=== PATIENT | female | born 1970 | race Caucasian/White ===

== ENCOUNTER 2016-02-29 10:11 | Emergency (ER) | payer OTHER ==
[~2016-02-29] VITALS: Ht 160 cm; Wt 64.9 kg
[2016-02-29 10:31] VITALS: BP 133/63
--- NOTE | 2016-02-29 10:41 | RAD ---
Chest, 2 views, 02/29/2016: History: Cough, dyspnea, pain The heart size and pulmonary vascularity are normal. No pulmonary infiltrates are seen. There is no evidence of pleural fluid. IMPRESSION: No acute cardiopulmonary abnormality is detected.
[2016-02-29] MEDS ORDERED: PREDNISONE 20 MG TABLET PO ONE (11:30)
[2016-02-29] MEDS ORDERED: IPRATRPIUM/ALBUTEROL 0.5/2.5MG 3 ML NEBU. NEB ONE (11:30)
[2016-02-29] MEDS ORDERED: MORPHINE SULFATE 10 MG/ML VIAL. IM ONE (11:30)
[2016-02-29] MEDS ORDERED: ONDANSETRON ODT 4 MG TAB.RAPDIS PO ONE (11:30)
[2016-02-29] MEDS ORDERED: BENZ100C PO (12:45)
[2016-02-29] MEDS ORDERED: PROAIR RESPICL90 MCG IH (12:45)
[2016-02-29] MEDS ORDERED: ONDA4TAB10 SL (12:45)
[2016-02-29] MEDS ORDERED: PRED50TA PO (12:45)
--- NOTE | 2016-02-29 12:45 | PHYS DOC ---
Past Medical History Past Medical History: Bipolar, Migraines Additional Past Medical Histor: TREMORS, PTSD, Past Surgical History: Hysterectomy, Knee Replacement Additional Past Surgical Histo: Lumps removed from L breast, ENDOMETRIOSIS SURGERY Alcohol Use: None Drug Use: None Adult General Chief Complaint Chief Complaint: FLU SYMPTOM HPI HPI Patient is a 46 year old female with history of bipolar and migraine headaches who presents today with multiple complaints. Patient states she believes she has bronchitis, she states she's been having a productive cough since yesterday. Patient denies any fever. She states she is congested nasally. Patient's also complaining of vomiting and nausea since yesterday. She states she works at [employer] in they have approximately 17 resident's with similar symptoms. Patient's also complaining of exacerbation of her migraine headache due to the congestion. She initially requested Dilaudid for a migraine headache which I informed patient is not appropriate. I offered her morphine. Patient denies this being the worst headache in her life. Review of Systems Review of Systems Constitutional: Denies fever or chills [] Eyes: Denies change in visual acuity, redness, or eye pain [] HENT: nasal congestion Respiratory: cough Cardiovascular: No additional information not addressed in HPI [] GI: Denies abdominal pain, nausea, vomiting, bloody stools or diarrhea [] : Denies dysuria or hematuria [] Musculoskeletal: Denies back pain or joint pain [] Integument: Denies rash or skin lesions [] Neurologic: headache, Endocrine: Denies polyuria or polydipsia [] Current Medications Current Medications Current Medications Medications (Trade) Dose Ordered Sig/[facility] Start Time Stop Time Status Last Admin Dose Admin Albuterol/ Ipratropium (Duoneb) 3 ml 1X ONCE 02/29/16 11:30 02/29/16 11:31 DC Morphine Sulfate 5 mg 1X ONCE 02/29/16 11:30 02/29/16 11:31 DC 02/29/16 12:13 5 MG Ondansetron HCl (Zofran Odt) 4 mg 1X ONCE 02/29/16 11:30 02/29/16 11:31 DC 02/29/16 12:12 4 MG Prednisone (Prednisone) 60 mg 1X ONCE 02/29/16 11:30 02/29/16 11:31 DC 02/29/16 12:13 60 MG Allergies Allergies Allergies Coded Allergies Type Severity Reaction Last Updated Verified Penicillins Allergy Severe Anaphylaxis 02/02/15 Yes diphenhydramine Allergy Intermediate Nausea and Vomiting, GI Bleeding 02/29/16 Yes ketorolac Allergy Intermediate Nausea and Vomiting 02/29/16 Yes prochlorperazine Allergy Intermediate Nausea and Vomiting 02/29/16 Yes NSAIDS (Non-Steroidal Anti-Inflamma Adverse Reaction Intermediate Nausea and Vomiting, GI Bleeding 02/29/16 Yes Physical Exam Physical Exam Constitutional: Well developed, well nourished, no acute distress, non-toxic appearance. [] HENT: Normocephalic, atraumatic, bilateral external ears normal, oropharynx moist, no oral exudates, nose normal. [] Eyes: PERRLA, EOMI, conjunctiva normal, no discharge. [] Neck: Normal range of motion, no tenderness, supple, no stridor. [] Cardiovascular:Heart rate regular rhythm, no murmur [] Lungs & Thorax: Bilateral breath sounds clear to auscultation [] Abdomen: Bowel sounds normal, soft, no tenderness, no masses, no pulsatile masses. [] Skin: Warm, dry, no erythema, no rash. [] Back: No tenderness, no CVA tenderness. [] Extremities: No tenderness, no cyanosis, no clubbing, ROM intact, no edema. [] Neurologic: Alert and oriented X 3, normal motor function, normal sensory function, no focal deficits noted. Cranial nerves II through XII intact Psychologic: Affect normal, judgement normal, mood normal. [] Current Patient Data Vital Signs Vital Signs Date Time Temp Pulse Resp B/P Pulse Ox O2 Delivery O2 Flow Rate FiO2 02/29/16 12:13 16 96 Room Air 02/29/16 10:31 98.2 70 133/63 98.2 EKG EKG [] Radiology/Procedures Radiology/Procedures []PROCEDURE: CHEST PA & LATERAL Chest, 2 views, 02/29/2016: History: Cough, dyspnea, pain The heart size and pulmonary vascularity are normal. No pulmonary infiltrates are seen. There is no evidence of pleural fluid. IMPRESSION: No acute cardiopulmonary abnormality is detected. DICTATED and SIGNED BY: JEFFERSON ADDISON MD DATE: 02/29/16 1038 CC: DONIS BARBER APRN; NON,STAFF ~ Course & Med Decision Making Course & Med Decision Making Pertinent Labs and Imaging studies reviewed. (See chart for details) Patient is in the ED with multiple complaints including concern for bronchitis, she is a nonsmoker, she is also complaining of nasal congestion. She is also complaining of vomiting and nausea. 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 She is requesting something for her chronic migraine headaches. Her medicine of choice was Dilaudid, informed patient this is not appropriate. Offered her morphine 5 mg IM for her migraine. She is allergic to NSAIDs. Chest x-ray interpreted by radiologist as negative for any acute findings. Informed patient her bronchitis is probably viral. Offered her prednisone and a DuoNeb treatment in the ED. Her lungs were clear. She was discharged with prednisone for 4 more days, albuterol treatments, I offered her decongestants, patient states she cannot take them because they make her have tremors. Recommended saline rinses. Discharge her with Tessalon Perles. Discharge her with Imitrex for her headache. Discharge her with Zofran for nausea vomiting which could be viral. Recommended she pushes fluids and maintain good hand hygiene at home. Dragon Disclaimer Dragon Disclaimer This electronic medical record was generated, in whole or in part, using a voice recognition dictation system. Departure Departure Impression: Primary Impression: Migraine Additional Impressions: Acute bronchitis Upper respiratory infection Nausea and vomiting Disposition: 01 HOME, SELF-CARE Condition: STABLE Referrals: NO PCP (PCP) Please follow-up with your own doctor in the next 7 days Patient Instructions: Acute Bronchitis Additional Instructions: You were seen for acute bronchitis, upper respiratory infection, nausea and vomiting. All these symptoms are probably viral. Push fluids. Maintain good hand hygiene. Use the prescribed medicines as ordered. Come back to the emergency room if symptoms worsen. Scripts Prednisone 50 Mg Tablet1 Tab PO DAILY #4 TAB Prov:MUTUNGA,DONIS KNOT PICKER CLOTH 02/29/16 Ondansetron (Zofran Odt)4 Mg Tab.rapdis1 Tab SL Q8HRS #15 TAB Prov:MUTUNGA,DONIS KNOT PICKER CLOTH 02/29/16 Benzonatate (Tessalon Perle)100 Mg Capsule1 Cap PO TID #30 CAP Prov:MUTUNGA,DONIS KNOT PICKER CLOTH 02/29/16 Albuterol Sulfate (Proair Respiclick)90 Mcg Aer.pow.ba1 Puff IH PRN Q6HRS PRN SHORTNESS OF BREATH #1 INHALER Prov:DONIS BARBER KNOT PICKER CLOTH 02/29/16 Problem Qualifiers Primary Impression: Migraine Migraine type: without aura Status migrainosus presence: without status migrainosus Intractability: not intractable Qualified Code: G43.009 - Migraine without aura, not intractable, without status migrainosus Additional Impressions: Acute bronchitis Bronchitis organism: unspecified organism Qualified Code: J20.9 - Acute bronchitis, unspecified Upper respiratory infection URI type: unspecified URI Qualified Code: J06.9 - Acute upper respiratory infection, unspecified Nausea and vomiting Vomiting type: unspecified Vomiting Intractability: non-intractable Qualified Code: R11.2 - Nausea with vomiting, unspecified ELISABETHDONIS KNOT PICKER CLOTH Feb 29, 2016 12:45
== END 2016-02-29 13:07 | disposition home or self-care (01) ==
LOC: ER 10:11
DX: G43.909 Migraine, unspecified, not intractable, without status migrainosus (principal); J20.9 Acute bronchitis, unspecified; J06.9 Acute upper respiratory infection, unspecified; F31.9 Bipolar disorder, unspecified; F43.10 Post-traumatic stress disorder, unspecified; Z88.8 Allergy status to other drugs, medicaments and biological substances; Z88.0 Allergy status to penicillin
CPT/HCPCS: 71020; 94250; 94640; 94760; 96372; 99284; J2270; J7512; J7620; Q0162

== ENCOUNTER 2016-05-04 12:28 | Emergency (ER) | payer OTHER ==
[~2016-05-04] VITALS: Ht 160 cm; Wt 59.9 kg
[~2016-05-04 12:28] MED LIST: BENZ100C PO; ONDA4TAB10 SL; PRED50TA PO; PROAIR RESPICL90 MCG IH
[2016-05-04 12:41] VITALS: BP 138/89
[2016-05-04] MEDS ORDERED: LORA-434 PO (13:12)
--- NOTE | 2016-05-04 13:12 | PHYS DOC ---
Past Medical History Past Medical History: Bipolar, Migraines Additional Past Medical Histor: TREMORS, PTSD, Past Surgical History: Hysterectomy, Knee Replacement Additional Past Surgical Histo: Lumps removed from L breast, ENDOMETRIOSIS SURGERY Alcohol Use: Occasionally Drug Use: None Adult General Chief Complaint Chief Complaint: ANXIETY/PANIC ATTACK [facility] HPI Patient is a 46 year old female who presents with severe anxiety causing headache and chest pain that is exactly like prior severe anxiety attacks. States she ended a 9-year relationship last night and this has caused severe stress. She is taking valium TID chronically for anxiety, but this is not helping her current feelings. She drove herself here. She notes a local support system of her children and her parents. She has a safe place to go. She discussed her feelings with her PCP and psychotherapist over the phone and was directed to the ED for help. She denies cough, dyspnea, leg pain or swelling, hemoptysis, n/v, f/c, abdominal pain, vision changes, numbness, tingling, weakness, dizziness, suicidal or homicidal ideations, or hallucinations. Review of Systems Review of Systems Constitutional: Denies fever or chills [] Eyes: Denies change in visual acuity, redness, or eye pain [] HENT: Denies nasal congestion or sore throat [] Respiratory: Denies cough or shortness of breath [] Cardiovascular: No additional information not addressed in HPI [] GI: Denies abdominal pain, nausea, vomiting, bloody stools or diarrhea [] : Denies dysuria or hematuria [] Musculoskeletal: Denies back pain or joint pain [] Integument: Denies rash or skin lesions [] Neurologic: Denies focal weakness or sensory changes [] Endocrine: Denies polyuria or polydipsia [] Allergies Allergies Allergies Coded Allergies Type Severity Reaction Last Updated Verified Penicillins Allergy Severe Anaphylaxis 02/02/15 Yes diphenhydramine Allergy Intermediate Nausea and Vomiting, GI Bleeding 02/29/16 Yes ketorolac Allergy Intermediate Nausea and Vomiting 02/29/16 Yes prochlorperazine Allergy Intermediate Nausea and Vomiting 02/29/16 Yes NSAIDS (Non-Steroidal Anti-Inflamma Adverse Reaction Intermediate Nausea and Vomiting, GI Bleeding 02/29/16 Yes Physical Exam Physical Exam Constitutional: Well developed, well nourished, non-toxic appearance. Anxious and tearful [] HENT: Normocephalic, atraumatic, bilateral external ears normal, oropharynx moist, no oral exudates, nose normal. [] Eyes: PERRLA, EOMI. [] Neck: Normal range of motion, supple. [] Cardiovascular:Heart rate regular rhythm [] Lungs & Thorax: Bilateral breath sounds clear to auscultation [] Abdomen: Bowel sounds normal, soft, no tenderness. [] Skin: Warm, dry, no erythema, no rash. [] Back: Normal ROM. [] Extremities: No tenderness, ROM intact, no edema. [] Neurologic: Alert and oriented X 3, normal motor function, normal sensory function, no focal deficits noted. [] Psychologic: Affect tearful, judgement normal, mood normal. Linear thinking [] Current Patient Data Vital Signs Vital Signs Date Time Temp Pulse Resp B/P Pulse Ox O2 Delivery O2 Flow Rate FiO2 05/04/16 12:41 98.1 82 22 138/89 99 Room Air 98.1 EKG EKG EKG as interpreted by me as normal sinus rhythm, rate 68, no ST-T changes, normal intervals, no ectopy Course & Med Decision Making Course & Med Decision Making Pertinent Labs and Imaging studies reviewed. (See chart for details) She feels better after being here and discussing her situation. Offered ativan , but she drove here; will give a short script. Return precautions given. She understands and agrees with plan. Dragon Disclaimer Dragon Disclaimer This electronic medical record was generated, in whole or in part, using a voice recognition dictation system. Departure Departure Impression: Primary Impression: Anxiety attack Disposition: 01 HOME, SELF-CARE Condition: STABLE Referrals: NO PCP (PCP) Patient Instructions: Anxiety and Panic Attacks, [id number] Additional Instructions: Take ativan as needed for anxiety. Follow up with your primary care doctor and psychiatrist. Return for any concerns. Scripts Lorazepam (Ativan)1 Mg Tablet1 Mg PO PRN TID PRN ANXIETY #3 TAB Prov:Zo VALADEZ MD 05/04/16 Zo VALADEZ MD May 04, 2016 13:12
--- NOTE | 2016-05-04 13:56 | EKG ---
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
== END 2016-05-04 13:28 | disposition home or self-care (01) ==
LOC: ER 12:28
DX: F41.1 Generalized anxiety disorder (principal); F31.9 Bipolar disorder, unspecified; G43.909 Migraine, unspecified, not intractable, without status migrainosus; F43.10 Post-traumatic stress disorder, unspecified; Z90.710 Acquired absence of both cervix and uterus; Z88.0 Allergy status to penicillin; Z88.6 Allergy status to analgesic agent; Z88.8 Allergy status to other drugs, medicaments and biological substances
CPT/HCPCS: 93005; 99283-25

== ENCOUNTER 2016-06-02 | Emergency (ER) | payer OTHER ==
[~2016-06-02] VITALS: Ht 160 cm; Wt 55.8 kg
[~2016-06-02] MED LIST changes: +LORA-434 PO
[2016-06-02] MEDS ORDERED: IV NORMAL SALINE 1000ML BAG 1,000 ML IV ONE (00:30)
[2016-06-02] MEDS ORDERED: ONDANSETRON PF 4 MG/2 ML VIAL. IV ONE ×2 (00:30→01:30)
[2016-06-02] MEDS ORDERED: DEXAMETHASONE SOD PHOS 20 MG/5 ML VIAL. IV ONE (00:30)
[2016-06-02] MEDS ORDERED: METOCLOPRAMIDE HCL 10 MG/2 ML VIAL. IV ONE (00:45)
--- NOTE | 2016-06-02 01:26 | PHYS DOC ---
Past Medical History Past Medical History: Bipolar, Migraines Additional Past Medical Histor: TREMORS, PTSD Past Surgical History: Hysterectomy, Knee Replacement Additional Past Surgical Histo: Lumps removed from L breast, ENDOMETRIOSIS SURGERY Alcohol Use: Occasionally Drug Use: None Adult General Chief Complaint Chief Complaint: HEADACHE HPI HPI Patient is a 46 year old female who presents with gradual onset headache associated with nausea exactly like prior migraines starting this afternoon. States she usually gets Zofran, pain medicine, and IV fluids with improvement in her symptoms. She is taking propranolol inferior set at home. States she cannot take NSAIDs due to GI bleeding. States she gets skin crawling and agitation with diphenhydramine or prochlorperazine. She denies fever or chills, emesis, numbness, tingling, weakness, injury. Review of Systems Review of Systems Constitutional: Denies fever or chills [] Eyes: Denies change in visual acuity, redness, or eye pain [] HENT: Denies nasal congestion or sore throat [] Respiratory: Denies cough or shortness of breath [] Cardiovascular: No additional information not addressed in HPI [] GI: Denies abdominal pain, nausea, vomiting, bloody stools or diarrhea [] : Denies dysuria or hematuria [] Musculoskeletal: Denies back pain or joint pain [] Integument: Denies rash or skin lesions [] Neurologic: Denies focal weakness or sensory changes [] Endocrine: Denies polyuria or polydipsia [] Current Medications Current Medications Current Medications Medications (Trade) Dose Ordered Sig/[facility] Start Time Stop Time Status Last Admin Dose Admin Acetaminophen (Tylenol) 500 mg 1X ONCE 06/02/16 01:30 06/02/16 01:31 DC 06/02/16 01:33 500 MG Dexamethasone Sodium Phosphate (Decadron) 10 mg 1X ONCE 06/02/16 00:30 06/02/16 00:31 DC 06/02/16 00:46 10 MG Fentanyl Citrate (Fentanyl 2ml Vial) 75 mcg 1X ONCE 06/02/16 01:30 06/02/16 01:31 DC 06/02/16 01:33 75 MCG Metoclopramide HCl (Reglan) 10 mg 1X ONCE 06/02/16 00:45 06/02/16 00:46 DC 06/02/16 00:46 10 MG Ondansetron HCl (Zofran) 4 mg 1X ONCE 06/02/16 01:30 06/02/16 01:31 DC 06/02/16 01:33 4 MG Ondansetron HCl 4 mg 4 mg 1X ONCE 06/02/16 00:30 06/02/16 00:30 DC Sodium Chloride (Iv Sodium Chloride 0.9% 1000ml Bag) 1,000 ml @ 1,000 mls/hr 1X ONCE 06/02/16 00:30 06/02/16 01:29 DC 06/02/16 00:47 1,000 MLS/HR Allergies Allergies Allergies Coded Allergies Type Severity Reaction Last Updated Verified Penicillins Allergy Severe Anaphylaxis 02/02/15 Yes diphenhydramine Allergy Intermediate Nausea and Vomiting, GI Bleeding 02/29/16 Yes ketorolac Allergy Intermediate Nausea and Vomiting 02/29/16 Yes prochlorperazine Allergy Intermediate Nausea and Vomiting 02/29/16 Yes NSAIDS (Non-Steroidal Anti-Inflamma Adverse Reaction Intermediate Nausea and Vomiting, GI Bleeding 02/29/16 Yes Physical Exam Physical Exam Constitutional: Well developed, well nourished, no acute distress, non-toxic appearance. [] HENT: Normocephalic, atraumatic, bilateral external ears normal, oropharynx moist, no oral exudates, nose normal. [] Eyes: PERRLA, EOMI. [] Neck: Normal range of motion, supple. [] Cardiovascular:Heart rate regular rhythm [] Lungs & Thorax: Bilateral breath sounds clear to auscultation [] Abdomen: Bowel sounds normal, soft, no tenderness. [] Skin: Warm, dry, no erythema, no rash. [] Back: Normal range of motion. [] Extremities: No tenderness, ROM intact, no edema. [] Neurologic: Alert and oriented X 3, normal motor function, normal sensory function, no focal deficits noted, cranial nerves II through XII intact. [] Psychologic: Affect normal, judgement normal, mood normal. [] Current Patient Data Vital Signs Vital Signs Date Time Temp Pulse Resp B/P Pulse Ox O2 Delivery O2 Flow Rate FiO2 06/02/16 00:11 97.9 79 20 124/77 97 Room Air 97.9 Course & Med Decision Making Course & Med Decision Making Pertinent Labs and Imaging studies reviewed. (See chart for details) Initially given Decadron, Reglan, and IV fluids with some improvement, but no resolution of her headache. She was then given fentanyl, Zofran, and Tylenol with improvement in her headache. Encouraged her to follow-up with her primary care doctor and neurology clinic appointment that she has. Return precautions given. She understands and agrees with plan. Dragon Disclaimer Dragon Disclaimer This electronic medical record was generated, in whole or in part, using a voice recognition dictation system. Departure Departure Impression: Primary Impression: Migraine Disposition: HOME, SELF-CARE Condition: STABLE Referrals: MILES MIRANDA MD (PCP) Patient Instructions: Recurrent Migraine Headache, [id number] Additional Instructions: Follow-up with your primary care doctor and neurology clinic. Return for any concerns. Problem Qualifiers Primary Impression: Migraine Migraine type: unspecified Status migrainosus presence: without status migrainosus Intractability: not intractable Qualified Code: G43.909 - Migraine, unspecified, not intractable, without status migrainosus Zo VALADEZ MD Jun 02, 2016 01:26
[2016-06-02 01:30] VITALS: BP 110/61
[2016-06-02] MEDS ORDERED: ACETAMINOPHEN 500 MG TABLET PO ONE (01:30)
[2016-06-02] MEDS ORDERED: fentaNYL PF VIAL 100 MCG/2 ML VIAL IV ONE (01:30)
== END 2016-06-02 02:05 | disposition home or self-care (01) ==
LOC: ER
DX: G43.909 Migraine, unspecified, not intractable, without status migrainosus (principal); F43.10 Post-traumatic stress disorder, unspecified; F31.9 Bipolar disorder, unspecified; Z88.0 Allergy status to penicillin; Z88.6 Allergy status to analgesic agent; Z88.8 Allergy status to other drugs, medicaments and biological substances
CPT/HCPCS: 96361; 96374; 96375; 99284; J1100; J2405; J2765; J3010; J7030

== ENCOUNTER 2016-11-15 23:25 | Emergency (ER) | payer OTHER ==
[~2016-11-15] VITALS: Ht 160 cm; Wt 47.2 kg
[2016-11-15 23:36] VITALS: BP 93/61
[2016-11-15] MEDS ORDERED: cefTRIAXone IM 1 GM VIAL IM ONE (23:45)
[2016-11-15] MEDS ORDERED: PHENAZOPYRIDINE 200 MG TABLET. PO ONE (23:45)
--- NOTE | 2016-11-15 23:49 | PHYS DOC ---
Past Medical History Past Medical History: Bipolar, Hypertension, Migraines Additional Past Medical Histor: TREMORS, PTSD Past Surgical History: Hysterectomy, Knee Replacement Additional Past Surgical Histo: Lumps removed from L breast, ENDOMETRIOSIS SURGERY Alcohol Use: Rarely Drug Use: None Adult General Chief Complaint Chief Complaint: HEADACHE HPI HPI Patient is a 46 year old female who presents with migraine. She has a known headache disorder and is followed by neurology. She's had prior neuro imaging. This headache is consistent with prior migraines and started Tuesday morning. It' s behind the left eye between both of her temples. Nausea but no vomiting. No recent fever or illness. She states she took her usual "cocktail" at home but had limited response. She was here back in May for the same thing and requests "that medication they gave me then". She states it was very successful. Review of Systems Review of Systems Constitutional: Denies fever or chills Eyes: Denies change in visual acuity, redness, or eye pain HENT: Denies nasal congestion or sore throat; neck. Respiratory: Denies cough or shortness of breath Cardiovascular: No chest pain. GI: Denies abdominal pain, nausea, vomiting, bloody stools or diarrhea : Denies dysuria or hematuria Musculoskeletal: Denies back pain or joint pain Integument: Denies rash or skin lesions Neurologic: POS headache, DENIES focal weakness or sensory changes Current Medications Current Medications Current Medications Medications (Trade) Dose Ordered Sig/[facility] Start Time Stop Time Status Last Admin Dose Admin Ceftriaxone Sodium (Rocephin Im) 1 gm 1X ONCE 11/15/16 23:45 11/15/16 23:46 Cancel Dexamethasone Sodium Phosphate (Decadron) 10 mg 1X ONCE 11/16/16 00:00 11/16/16 00:01 DC 11/16/16 00:12 10 MG Fentanyl Citrate (Fentanyl 2ml Vial) 75 mcg 1X ONCE 11/16/16 00:00 11/16/16 00:01 DC 11/16/16 00:15 75 MCG Metoclopramide HCl (Reglan) 10 mg 1X ONCE 11/16/16 00:00 11/16/16 00:01 DC 11/16/16 00:13 10 MG Ondansetron HCl (Zofran) 8 mg 1X ONCE 11/16/16 00:00 11/16/16 00:01 DC 11/16/16 00:13 8 MG Phenazopyridine HCl (Pyridium) 200 mg 1X ONCE 11/15/16 23:45 11/15/16 23:46 Cancel Sodium Chloride 1,000 ml @ 1,000 mls/hr 1X ONCE 11/16/16 00:00 11/16/16 00:59 11/16/16 00:11 1,000 MLS/HR Allergies Allergies Allergies Coded Allergies Type Severity Reaction Last Updated Verified Penicillins Allergy Severe Anaphylaxis 02/02/15 Yes diphenhydramine Allergy Intermediate Nausea and Vomiting, GI Bleeding 02/29/16 Yes ketorolac Allergy Intermediate Nausea and Vomiting 02/29/16 Yes prochlorperazine Allergy Intermediate Nausea and Vomiting 02/29/16 Yes NSAIDS (Non-Steroidal Anti-Inflamma Adverse Reaction Intermediate Nausea and Vomiting, GI Bleeding 02/29/16 Yes Physical Exam Physical Exam Constitutional: Well developed, well nourished, no acute distress, non-toxic appearance. HENT: Normocephalic, atraumatic, bilateral external ears normal, oropharynx moist, no oral exudates, nose normal. Eyes: PERRLA, EOMI, conjunctiva normal, no discharge. Neck: Normal range of motion, no tenderness, supple, no stridor. Cardiovascular:Heart rate regular rhythm, no murmur Lungs & Thorax: Bilateral breath sounds clear to auscultation Abdomen: Bowel sounds normal, soft, no tenderness, no masses, no pulsatile masses. Skin: Warm, dry, no erythema, no rash. Back: No tenderness, no CVA tenderness. Extremities: No tenderness, no cyanosis, no clubbing, ROM intact, no edema. Neurologic: Alert and oriented X 3, normal motor function, normal sensory function, no focal deficits noted. Psychologic: Affect normal, judgement normal, mood normal. Current Patient Data Vital Signs Vital Signs Date Time Temp Pulse Resp B/P (MAP) Pulse Ox O2 Delivery O2 Flow Rate FiO2 11/15/16 23:36 98.4 92 14 93/61 (72) 98 Room Air 98.4 Course & Med Decision Making Course & Med Decision Making Evaluated patient. Prior visit dosed with IV Decadron, reglan, zofran and fentanyl. aT 0050 am: Patient resting comfortably. Home (cannot drive). I have spoken with the patient and/or caregivers. I have explained the patient' s condition, diagnosis and treatment plan based on the information available to me at this time. I have answered the patient's and/or caregiver's questions and addressed any concerns. The patient and/or caregivers have as good an understanding of the patient's diagnosis, condition and treatment plan as can be expected at this point. The patient's condition is stable and appropriate for discharge from the emergency department. The patient will pursue further outpatient evaluation with the primary care physician or other designated or consulting physician as outlined in the discharge instructions. The patient and/or caregivers are agreeable to this plan of care and follow-up instructions have been explained in detail. The patient and/or caregivers have received these instructions in written format and have expressed an understanding of the discharge instructions. The patient and/or caregivers are aware that any significant change in condition or worsening of symptoms should prompt an immediate return to this or the closest emergency department or a call to 911. Dragon Disclaimer Dragon Disclaimer This electronic medical record was generated, in whole or in part, using a voice recognition dictation system. Departure Departure Impression: Primary Impression: Migraine Disposition: 01 HOME, SELF-CARE Condition: STABLE Referrals: MILES MIRANDA MD (PCP) Patient Instructions: Migraine Headache Problem Qualifiers Primary Impression: Migraine Migraine type: without aura Status migrainosus presence: without status migrainosus Intractability: not intractable Qualified Codes: G43.009 - Migraine without aura, not intractable, without status migrainosus ALONZO HERNANDEZ MD Nov 15, 2016 23:49
[2016-11-16] MEDS ORDERED: IV NORMAL SALINE 1000ML BAG 1,000 ML IV ONE
[2016-11-16] MEDS ORDERED: fentaNYL PF VIAL 100 MCG/2 ML VIAL IV ONE
[2016-11-16] MEDS ORDERED: ONDANSETRON PF 4 MG/2 ML VIAL. IV ONE
[2016-11-16] MEDS ORDERED: METOCLOPRAMIDE HCL 10 MG/2 ML VIAL. IV ONE
[2016-11-16] MEDS ORDERED: DEXAMETHASONE SOD PHOS 20 MG/5 ML VIAL. IV ONE
== END 2016-11-16 01:10 | disposition home or self-care (01) ==
LOC: ER 23:25
DX: G43.009 Migraine without aura, not intractable, without status migrainosus (principal); I10 Essential (primary) hypertension; F43.10 Post-traumatic stress disorder, unspecified; F31.9 Bipolar disorder, unspecified; Z88.0 Allergy status to penicillin; Z88.6 Allergy status to analgesic agent; Z88.8 Allergy status to other drugs, medicaments and biological substances
CPT/HCPCS: 96361; 96374; 96375; 99284; J1100; J2405; J2765; J3010; J7030

== ENCOUNTER 2017-01-31 11:55 | Emergency (ER) | payer OTHER ==
[~2017-01-31] VITALS: Ht 160 cm; Wt 52.6 kg
[2017-01-31 12:10] VITALS: BP 111/58
[2017-01-31] MEDS ORDERED: PROAIR RESPICL90 MCG IH (12:46)
[2017-01-31] MEDS ORDERED: CLIN150C14 PO (12:46)
[2017-01-31] MEDS ORDERED: BENZ100C PO (12:46)
[2017-01-31] MEDS ORDERED: PRED50TA PO (12:46)
--- NOTE | 2017-01-31 12:47 | PHYS DOC ---
Past Medical History Past Medical History: Bipolar, Hypertension, Migraines Additional Past Medical Histor: TREMORS, PTSD Past Surgical History: Hysterectomy, Knee Replacement Additional Past Surgical Histo: Lumps removed from L breast, ENDOMETRIOSIS SURGERY Alcohol Use: Rarely Drug Use: None Adult General Chief Complaint Chief Complaint: COUGH HPI HPI Patient is a 46 year old female with history of bipolar, hypertension, who presents today complaining of nasal congestion, sinus pressure and a cough intermittently for 2 weeks. Patient states she has history of sinus infections. Denies fever. Denies any smoking. Off note she is requesting Tussionex cough syrup. PCP Dr. Garcia Review of Systems Review of Systems Constitutional: see HPI Eyes: Denies change in visual acuity, redness, or eye pain [] HENT: Reports nasal congestion denies sore throat [] Respiratory: Reports cough denies shortness of breath [] Cardiovascular: No additional information not addressed in HPI [] GI: Denies abdominal pain, nausea, vomiting, bloody stools or diarrhea [] : Denies dysuria or hematuria [] Musculoskeletal: Denies back pain or joint pain [] Integument: Denies rash or skin lesions [] Neurologic: Denies headache, focal weakness or sensory changes [] Endocrine: Denies polyuria or polydipsia [] All other systems were reviewed and found to be within normal limits, except as documented in this note. Allergies Allergies Allergies Coded Allergies Type Severity Reaction Last Updated Verified Penicillins Allergy Severe Anaphylaxis 02/02/15 Yes diphenhydramine Allergy Intermediate Nausea and Vomiting, GI Bleeding 02/29/16 Yes ketorolac Allergy Intermediate Nausea and Vomiting 02/29/16 Yes prochlorperazine Allergy Intermediate Nausea and Vomiting 02/29/16 Yes NSAIDS (Non-Steroidal Anti-Inflamma Adverse Reaction Intermediate Nausea and Vomiting, GI Bleeding 02/29/16 Yes Physical Exam Physical Exam Constitutional: Well developed, well nourished, no acute distress, non-toxic appearance. [] HENT: Normocephalic, atraumatic, bilateral external ears normal, oropharynx moist, no oral exudates, Bilateral nasal tenderness or bogginess erythematous. Mild frontal and maxillary sinus pressure on exam. Eyes: PERRLA, EOMI, conjunctiva normal, no discharge. [] Neck: Normal range of motion, no tenderness, supple, no stridor. [] Cardiovascular:Heart rate regular rhythm, no murmur [] Lungs & Thorax: Bilateral breath sounds clear to auscultation [] Abdomen: Bowel sounds normal, soft, no tenderness, no masses, no pulsatile masses. [] Skin: Warm, dry, no erythema, no rash. [] Back: No tenderness, no CVA tenderness. [] Extremities: No tenderness, no cyanosis, no clubbing, ROM intact, no edema. [] Neurologic: Alert and oriented X 3, normal motor function, normal sensory function, no focal deficits noted. [] Psychologic: Affect normal, judgement normal, mood normal. [] Current Patient Data Vital Signs Vital Signs Date Time Temp Pulse Resp B/P (MAP) Pulse Ox O2 Delivery O2 Flow Rate FiO2 01/31/17 12:10 98.1 79 16 94 Room Air 98.1 EKG EKG [] Radiology/Procedures Radiology/Procedures [] Course & Med Decision Making Course & Med Decision Making Pertinent Labs and Imaging studies reviewed. (See chart for details) Patient is in the ED with symptoms consistent of acute bronchitis and a sinus infection. Informed patient i will send her home with Clindamycin, Prednisone for 5 days, albuterol inhaler and Tessalon Perles. Patient states she would like Tussionex prescription. She states this is the only thing that works for her cough. Informed patient there are other non narcotic cough medicines that work for patient's like Tessalon Perles. Informed patient we an epidemic of narcotic abuse in the country and we are trying to help the [place] and government end this epidemic. Recommended Tessalon Perles and f/u with her PCP Jadon Disclaimer Jadon Disclaimer This electronic medical record was generated, in whole or in part, using a voice recognition dictation system. Departure Departure Impression: Primary Impression: Acute bronchitis Additional Impression: Acute sinusitis Disposition: HOME, SELF-CARE Condition: STABLE Referrals: EMMA GARCIA MD (PCP) follow up as soon as you can Patient Instructions: Acute Bronchitis, Sinusitis Additional Instructions: You were seen with symptoms consistent with a sinus infection and acute bronchitis. Take the prescribed medications as ordered. Follow-up with your own doctor in the course of this week. Scripts Prednisone (PREDNISONE) 50 Mg Tablet 1 TAB PO DAILY, #5 TAB Prov: ELISABETHDONIS NOEMY 01/31/17 Clindamycin Hcl (CLINDAMYCIN HCL) 150 Mg Capsule 3 CAP PO TID, #90 CAP Prov: DONIS BARBER APRN 01/31/17 Benzonatate (TESSALON PERLE) 100 Mg Capsule 1 CAP PO TID, #30 CAP Prov: DONIS BARBER APRN 01/31/17 Albuterol Sulfate (Proair Respiclick) 90 Mcg Aer.pow.ba 1 PUFF IH PRN Q6HRS Y for SHORTNESS OF BREATH, #1 INHALER Prov: DONIS BARBER APRN 01/31/17 Problem Qualifiers Primary Impression: Acute bronchitis Bronchitis organism: unspecified organism Qualified Codes: J20.9 - Acute bronchitis, unspecified Additional Impression: Acute sinusitis Sinusitis location: frontal Recurrence: recurrent Qualified Codes: J01.11 - Acute recurrent frontal sinusitis DONIS BARBER APRN Jan 31, 2017 12:47
== END 2017-01-31 13:01 | disposition home or self-care (01) ==
LOC: ER 11:55
DX: J20.9 Acute bronchitis, unspecified (principal); J01.11 Acute recurrent frontal sinusitis; F31.9 Bipolar disorder, unspecified; I10 Essential (primary) hypertension; G43.909 Migraine, unspecified, not intractable, without status migrainosus; F43.10 Post-traumatic stress disorder, unspecified; Z88.0 Allergy status to penicillin; Z90.710 Acquired absence of both cervix and uterus; Z96.659 Presence of unspecified artificial knee joint; Z88.8 Allergy status to other drugs, medicaments and biological substances; Z88.6 Allergy status to analgesic agent
CPT/HCPCS: 99283

== ENCOUNTER → 2017-03-15 | Outpatient (CLI) | payer OTHER | END | disposition home or self-care (01) | LOC: MAMMO 12:47 | DX: N63.10 Unspecified lump in the right breast, unspecified quadrant (principal) | CPT/HCPCS: 76641; 77066 ==

== ENCOUNTER 2017-09-10 11:36 | Emergency (ER) | payer OTHER | END 2017-09-10 14:15 | disposition home or self-care (01) | LOC: ER 11:36 | DX: M25.572 Pain in left ankle and joints of left foot (principal); F31.9 Bipolar disorder, unspecified; I10 Essential (primary) hypertension; G43.909 Migraine, unspecified, not intractable, without status migrainosus; F17.200 Nicotine dependence, unspecified, uncomplicated; Z90.710 Acquired absence of both cervix and uterus; Z96.659 Presence of unspecified artificial knee joint; Z88.0 Allergy status to penicillin; Z88.8 Allergy status to other drugs, medicaments and biological substances | CPT/HCPCS: 73610; 99284 ==

== ENCOUNTER 2017-10-20 12:50 | Emergency (ER) | payer OTHER ==
[~2017-10-20] VITALS: Ht 160 cm; Wt 56.2 kg
[~2017-10-20 12:50] MED LIST changes: +CLIN150C14 PO
[2017-10-20 13:09] VITALS: BP 130/78
[2017-10-20] MEDS ORDERED: DICL100G18 TP (13:54)
[2017-10-20] MEDS ORDERED: METH4TAB2 PO (13:54)
[2017-10-20] MEDS ORDERED: HYDR-971 PO (13:54)
--- NOTE | 2017-10-20 13:54 | PHYS DOC ---
Past Medical History Past Medical History: Bipolar, Hypertension, Migraines, Other Additional Past Medical Histor: TREMORS, PTSD Past Surgical History: Hysterectomy, Knee Replacement, Other Additional Past Surgical Histo: Lumps removed from L breast, ENDOMETRIOSIS SURGERY Additional Information: 0.5 PPD Alcohol Use: Rarely Drug Use: None Adult General Chief Complaint Chief Complaint: UPPER EXTREMITY INJURY HPI HPI Patient is a 47 year old female with history of bipolar, migraine headaches, hypertension, who presents today complaining of 9 out of 10 sharp constant right elbow pain that began 2 weeks ago. 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 Patient states while doing both transfers the patient went one direction and she yanked the patient a different direction. Patient states she has tried taking meloxicam, Tylenol, cyclobenzaprine with no relief. She is requesting something for pain. Patient states her pain is radiating up and down her right arm. Review of Systems Review of Systems Constitutional: Denies fever or chills [] Musculoskeletal: right elbow pain Integument: Denies rash or skin lesions [] Neurologic: Denies headache, focal weakness or sensory changes [] All other systems were reviewed and found to be within normal limits, except as documented in this note. Allergies Allergies Allergies Coded Allergies Type Severity Reaction Last Updated Verified Penicillins Allergy Severe Anaphylaxis 02/02/15 Yes diphenhydramine Allergy Intermediate Nausea and Vomiting, GI Bleeding 02/29/16 Yes ketorolac Allergy Intermediate Nausea and Vomiting 02/29/16 Yes prochlorperazine Allergy Intermediate Nausea and Vomiting 02/29/16 Yes NSAIDS (Non-Steroidal Anti-Inflamma Adverse Reaction Intermediate Nausea and Vomiting, GI Bleeding 02/29/16 Yes Physical Exam Physical Exam Constitutional: Well developed, well nourished, no acute distress, non-toxic appearance. [] Skin: Warm, dry, no erythema, no rash. [] Back: No tenderness, no CVA tenderness. [] Extremities: Right upper extremity with no obvious deformity. No tenderness on palpation of the right upper extremity, full passive and active range of motion to the right elbow including flexion and extension, plantar flexion and dorsiflexion of the right forearm. Adequate radial medial and ulnar sensation to the right upper extremity. +2 right radial pulse. Cap refill less than 2 seconds the right fingers. Neurologic: Alert and oriented X 3, normal motor function, normal sensory function, no focal deficits noted. [] Psychologic: Affect normal, judgement normal, mood normal. [] Current Patient Data Vital Signs Vital Signs Date Time Temp Pulse Resp B/P (MAP) Pulse Ox O2 Delivery O2 Flow Rate FiO2 10/20/17 13:09 97.8 18 18 130/78 (95) 99 Room Air 97.8 EKG EKG [] Radiology/Procedures Radiology/Procedures [] Course & Med Decision Making Course & Med Decision Making Pertinent Labs and Imaging studies reviewed. 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 Patient appears to have a muscle strain though there is always a chance she could have tendon issues or muscle tears considering the nature of the injury. Offered patient x-rays. Patient declined. Recommended she follows up with the orthopedic doctor and maybe they can do an MRI of the right upper extremity. Patient has tried [id number] medications with no relief. Offered her and her Medrol dose pack. Gave her prescription for hydrocodone 8 tablets. She states she has already tried Cyclobenzaprine, she is allergic to NSAIDs. I did give her Voltaren cream as well. Dragon Disclaimer Dragon Disclaimer This electronic medical record was generated, in whole or in part, using a voice recognition dictation system. Departure Departure Impression: Primary Impression: Sprain of elbow, right Disposition: 01 HOME, SELF-CARE Referrals: EMMA CHRISTIAN MD (PCP) CHILANGO MULLEN MD Please consider following up with an Orthopedic doctor for further care Patient Instructions: Muscle Strain, [id number] Additional Instructions: You were seen for right elbow muscle strain. Wear the provided Tavares bandage as ordered. Ice elevate the extremity. Use the prescribed medications as ordered. We recommend you follow-up with an orthopedic doctor provided in one week. Scripts Diclofenac Sodium (VOLTAREN) 100 Gm Gel..gram. 1 GM TP QID, #100 GM 2 Refills Prov: MUTUNGA,DONIS [employer] 10/20/17 Methylprednisolone (MEDROL) 4 Mg Tab.ds.pk 1 PKG PO UD, #1 PKG Prov: MUTUNGA,DONIS [employer] TESTER 10/20/17 Hydrocodone/Apap 5-325 (NORCO 5-325 TABLET) 1 Each Tablet 1 TAB PO Q4-6HRS, #8 TAB Prov: DONIS BARBER APRN 10/20/17 Problem Qualifiers Primary Impression: Sprain of elbow, right Encounter type: initial encounter Qualified Codes: S53.401A - Unspecified sprain of right elbow, initial encounter DONIS BARBER APRN Oct 20, 2017 13:54
== END 2017-10-20 14:03 | disposition home or self-care (01) ==
LOC: ER 12:50
DX: S53.401A Unspecified sprain of right elbow, initial encounter (principal); F31.9 Bipolar disorder, unspecified; I10 Essential (primary) hypertension; G43.909 Migraine, unspecified, not intractable, without status migrainosus; F43.10 Post-traumatic stress disorder, unspecified; F17.210 Nicotine dependence, cigarettes, uncomplicated; Z88.0 Allergy status to penicillin; Z88.8 Allergy status to other drugs, medicaments and biological substances; Z88.6 Allergy status to analgesic agent; X50.0XXA Overexertion from strenuous movement or load, initial encounter; Y93.89 Activity, other specified; Y92.89 Other specified places as the place of occurrence of the external cause; Y99.0 Civilian activity done for income or pay
CPT/HCPCS: 99283

== ENCOUNTER → 2017-11-14 | Outpatient (CLI) | payer OTHER ==
[2017-10-20 13:09] VITALS: BP 130/78
[~2017-11-14] MED LIST changes: +DICL100G18 TP; +HYDR-971 PO; +METH4TAB2 PO
--- NOTE | 2017-11-14 10:53 | RAD ---
MR of the right elbow Indication: Elbow pain after injury one month ago. Pain is anteromedial. Technique: Standard multiplanar sequences are obtained. FINDINGS: Artifact: Mild motion degradation. Anterior: Biceps tendon and brachialis tendon are intact. Posterior: The triceps tendon and insertion are intact. Medial: Common flexor tendon and ulnar collateral ligament are intact. Lateral: Common extensor tendon intact. Lateral collateral ligament complex appears intact. Fluid: No significant effusion. Joints: No advanced DJD. Bones: No focal lesion. No acute fracture. Soft tissues: No concerning edema or fluid accumulation Ulnar nerve: Unremarkable Impression: No significant abnormality. Electronically signed by: Kvng Morgan MD (11/14/2017 10:50 AM) [id number]
== END | disposition home or self-care (01) ==
LOC: MRI 08:17
PROVIDERS: ATTEND Orthopaedic Surgery
DX: M25.521 Pain in right elbow (principal)
CPT/HCPCS: 73221

== ENCOUNTER 2018-01-01 20:16 | Emergency (ER) | payer OTHER ==
[~2018-01-01] VITALS: Ht 160 cm; Wt 60.8 kg
[~2018-01-01 20:16] MED LIST changes: +HYDR-3164 PO; -HYDR-971 PO
[2018-01-01 20:29] VITALS: BP 133/64
--- NOTE | 2018-01-01 20:39 | PHYS DOC ---
Past Medical History Past Medical History: Bipolar, Hypertension, Migraines, Other Additional Past Medical Histor: TREMORS, PTSD Past Surgical History: Hysterectomy, Knee Replacement, Other Additional Past Surgical Histo: Lumps removed from L breast, ENDOMETRIOSIS SURGERY Alcohol Use: Rarely Drug Use: None Adult General Chief Complaint Chief Complaint: FOOT INJURY PAIN HPI HPI Patient is a 47 year old female presents for evaluation of right ankle injury. She was shoveling the snow from the driveway when she rolled the left ankle. Denies other injuries. She reports it hurts in the posterior aspect of the ankle. She is able to ambulate without assistance in the emergency room tonight. She has taken ibuprofen and Tylenol prior to arrival tonight. She has also been using ice to the extremity. Review of Systems Review of Systems Constitutional: Denies fever or chills [] Eyes: Denies change in visual acuity, redness, or eye pain [] HENT: Denies nasal congestion or sore throat [] Respiratory: Denies cough or shortness of breath [] Cardiovascular: No additional information not addressed in HPI [] GI: Denies abdominal pain, nausea, vomiting, bloody stools or diarrhea [] : Denies dysuria or hematuria [] Musculoskeletal: right ankle pain] Integument: Denies rash or skin lesions [] Neurologic: Denies headache, focal weakness or sensory changes [] Endocrine: Denies polyuria or polydipsia [] All other systems were reviewed and found to be within normal limits, except as documented in this note. Current Medications Current Medications Current Medications Medications (Trade) Dose Ordered Sig/[facility] Start Time Stop Time Status Last Admin Dose Admin Acetaminophen (Tylenol) 650 mg 1X ONCE 01/01/18 20:45 01/01/18 20:45 DC Allergies Allergies Allergies Coded Allergies Type Severity Reaction Last Updated Verified Penicillins Allergy Severe Anaphylaxis 02/02/15 Yes diphenhydramine Allergy Intermediate Nausea and Vomiting, GI Bleeding 02/29/16 Yes ketorolac Allergy Intermediate Nausea and Vomiting 02/29/16 Yes prochlorperazine Allergy Intermediate Nausea and Vomiting 02/29/16 Yes NSAIDS (Non-Steroidal Anti-Inflamma Adverse Reaction Intermediate Nausea and Vomiting, GI Bleeding 02/29/16 Yes Physical Exam Physical Exam Constitutional: Well developed, well nourished, no acute distress, non-toxic appearance. [] Skin: Warm, dry, no erythema, no rash. [] Extremities: Tenderness to palpation to posterior right ankle, Achilles tendon is intact, no cyanosis, no clubbing, ROM intact, no edema. [] Neurologic: Alert and oriented X 3, normal motor function, normal sensory function, no focal deficits noted. [] Psychologic: Affect normal, judgement normal, mood normal. [] Current Patient Data Vital Signs Vital Signs Date Time Temp Pulse Resp B/P (MAP) Pulse Ox O2 Delivery O2 Flow Rate FiO2 01/01/18 20:29 98.1 84 16 133/64 (87) 98 Room Air 98.1 EKG EKG [] Radiology/Procedures Radiology/Procedures [] Impressions: X-ray of the right ankle is negative Course & Med Decision Making Course & Med Decision Making Pertinent Labs and Imaging studies reviewed. (See chart for details) [Right ankle series negative, patient is placed in Tavares wrap for compression and comfort, advised ice and elevation of the extremity, continue with over-the- counter medications and follow up with primary care doctor. Splint Assessment: Neurovascularly intact post splint placement with good fit. ] Dragon Disclaimer Dragon Disclaimer This electronic medical record was generated, in whole or in part, using a voice recognition dictation system. Departure Departure Impression: Primary Impression: Ankle pain Disposition: 01 HOME, SELF-CARE Condition: STABLE Referrals: EMMA CHRISTIAN MD (PCP) Patient Instructions: Ankle Pain JOHN SCHERER APRN Jan 01, 2018 20:39
--- NOTE | 2018-01-01 20:43 | RAD ---
EXAM: Right ankle, 3 views. HISTORY: Rolled ankle. COMPARISON: 09/10/2017 FINDINGS: 3 views of the right ankle are obtained. There is no fracture, dislocation or subluxation. No osteochondral lesion is seen. IMPRESSION: No acute osseous finding. Electronically signed by: Chelsea Gerber MD (01/01/2018 8:39 PM) [facility]
[2018-01-01] MEDS ORDERED: ACETAMINOPHEN 325 MG TABLET. PO ONE (20:45)
== END 2018-01-01 20:53 | disposition home or self-care (01) ==
LOC: ER 20:16
DX: S99.911A Unspecified injury of right ankle, initial encounter (principal); F31.9 Bipolar disorder, unspecified; I10 Essential (primary) hypertension; G43.909 Migraine, unspecified, not intractable, without status migrainosus; Z90.710 Acquired absence of both cervix and uterus; Z96.659 Presence of unspecified artificial knee joint; Z88.0 Allergy status to penicillin; Z88.8 Allergy status to other drugs, medicaments and biological substances; X58.XXXA Exposure to other specified factors, initial encounter; Y93.H1 Activity, digging, shoveling and raking; Y92.89 Other specified places as the place of occurrence of the external cause; Y99.8 Other external cause status
CPT/HCPCS: 73610; 99284

== ENCOUNTER → 2018-03-14 | Outpatient (CLI) | payer OTHER ==
[2018-03-14 11:16] LABS: BASO # 0.1 x10^3/uL (0.0-0.2); BASO % 1 % (0-3); EOS # 0.2 x10^3/uL (0.0-0.7); EOS % 2 % (0-3); HEMATOCRIT 41.9 % (36.0-47.0); HEMOGLOBIN 13.9 g/dL (12.0-15.5); LYMPH # 3.2 x10^3/uL (1.0-4.8); LYMPH % 47 % (24-48); MEAN CORPUSCULAR HEMOGLOBIN 30 pg (25-35); MEAN CORPUSCULAR HGB CONC 33 g/dL (31-37); MEAN CORPUSCULAR VOLUME 92 fL (79-100); MONO # 0.5 x10^3/uL (0.0-1.1); MONO % 8 % (0-9); NEUT # 2.9 x10^3uL (1.8-7.7); NEUT % 43 % (31-73); PLATELET COUNT 229 x10^3/uL (140-400); RED BLOOD COUNT 4.57 x10^6/uL (3.50-5.40); RED CELL DISTRIBUTION WIDTH 13.8 % (11.5-14.5); WHITE BLOOD COUNT 6.8 x10^3/uL (4.0-11.0)
[2018-03-14 11:35] LABS: ALBUMIN 3.8 g/dL (3.4-5.0); CALCIUM 9.7 mg/dL (8.5-10.1); CREATININE 0.8 mg/dL (0.6-1.0); GFR 75.9; POTASSIUM 4.1 mmol/L (3.5-5.1); TOTAL BILIRUBIN 0.3 mg/dL (0.2-1.0); TOTAL PROTEIN 7.6 g/dL (6.4-8.2)
[2018-03-14 11:38] LABS: CHOLESTEROL/HDL RATIO 4.5
[2018-03-14 23:16] LABS: HEMOGLOBIN A1C 5.7 % (4.8-5.6)
== END | disposition home or self-care (01) ==
LOC: LAB 10:52
PROVIDERS: ATTEND Internal Medicine
DX: Z00.00 Encounter for general adult medical examination without abnormal findings (principal)
CPT/HCPCS: 36415; 80053; 80061; 82306; 83036; 84443; 85025

== ENCOUNTER 2018-06-17 08:40 | Emergency (ER) | payer OTHER ==
[~2018-06-17] VITALS: Ht 160 cm; Wt 66.7 kg
[2018-06-17 09:02] VITALS: BP 122/84
[2018-06-17] MEDS ORDERED: METH4TAB2 PO ×2 (09:34→20:49)
[2018-06-17] MEDS ORDERED: HYDR25TA PO ×2 (09:34→20:49)
[2018-06-17] MEDS ORDERED: BETA15CR5 TP ×2 (09:34→20:49)
--- NOTE | 2018-06-17 09:34 | PHYS DOC ---
Past Medical History Past Medical History: Bipolar, Hypertension, Migraines, Other Additional Past Medical Histor: TREMORS, PTSD Past Surgical History: Hysterectomy, Knee Replacement, Other Additional Past Surgical Histo: Lumps removed from L breast, ENDOMETRIOSIS SURGERY Additional Information: < 0.5 PPD Alcohol Use: Rarely Drug Use: None Adult General Chief Complaint Chief Complaint: ALLERGIC REACTION HPI HPI Patient is a 48 year old female who presents with feeling of rash. Patient complaining of intermittent episodes of pruritic rash on her hand and vaccination that area for the last 2 weeks that did not get better with [id number] medication and thinks she has allergic reaction. Patient denies changing her medication or starting new medicine. Review of Systems Review of Systems Constitutional: Denies fever or chills [] Eyes: Denies change in visual acuity, redness, or eye pain [] HENT: Denies nasal congestion or sore throat [] Respiratory: Denies cough or shortness of breath [] Cardiovascular: No additional information not addressed in HPI [] GI: Denies abdominal pain, nausea, vomiting, bloody stools or diarrhea [] : Denies dysuria or hematuria [] Musculoskeletal: Denies back pain or joint pain [] Integument: Reports rash Neurologic: Denies headache, focal weakness or sensory changes [] Endocrine: Denies polyuria or polydipsia [] All other systems were reviewed and found to be within normal limits, except as documented in this note. Current Medications Current Medications Current Medications Medications (Trade) Dose Ordered Sig/[facility] Start Time Stop Time Status Last Admin Dose Admin Dexamethasone Sodium Phosphate (Decadron) 10 mg 1X ONCE 06/17/18 09:45 06/17/18 09:46 DC 06/17/18 09:52 10 MG Allergies Allergies Allergies Coded Allergies Type Severity Reaction Last Updated Verified Penicillins Allergy Severe Anaphylaxis 02/02/15 Yes diphenhydramine Allergy Intermediate Nausea and Vomiting, GI Bleeding 02/29/16 Yes ketorolac Allergy Intermediate Nausea and Vomiting 02/29/16 Yes prochlorperazine Allergy Intermediate Nausea and Vomiting 02/29/16 Yes NSAIDS (Non-Steroidal Anti-Inflamma Adverse Reaction Intermediate Nausea and Vomiting, GI Bleeding 02/29/16 Yes Physical Exam Physical Exam Constitutional: Well developed, well nourished, mild distress, non-toxic appearance. [] HENT: Normocephalic, atraumatic. Eyes: PERRLA, EOMI, conjunctiva normal, no discharge. [] Neck: Normal range of motion, no tenderness, supple, no stridor. [] Cardiovascular:Heart rate regular rhythm, no murmur [] Lungs & Thorax: Bilateral breath sounds clear to auscultation [] Abdomen: Bowel sounds normal, soft, no tenderness, no masses, no pulsatile masses. [] Skin: Warm, dry, no erythema, pruritus rash on upper extremities and back and genital area Back: No tenderness, no CVA tenderness. [] Extremities: No tenderness, no cyanosis, no clubbing, ROM intact, no edema. [] Neurologic: Alert and oriented X 3, normal motor function, normal sensory function, no focal deficits noted. [] Psychologic: Affect normal, judgement normal, mood normal. [] Current Patient Data Vital Signs Vital Signs Date Time Temp Pulse Resp B/P (MAP) Pulse Ox O2 Delivery O2 Flow Rate FiO2 06/17/18 09:02 98.3 85 16 122/84 (97) 100 Room Air 98.3 EKG EKG [] Radiology/Procedures Radiology/Procedures [] Course & Med Decision Making Course & Med Decision Making discharge: I've spoken with the patient and/or caregivers. I've explained the patient's condition, diagnosis and treatment plan based on information available to me at this time. I've answered the patient's and/or caregivers questions and addressed any concerns. The patient and/or caregivers have a good understanding the patient's diagnosis, condition and treatment plan as can be expected at this point. Vital signs have been stabilized. The patient's condition is stable for discharge from the emergency department. The patient will pursue further outpatient evaluation with her primary care provider or other designated consulting physician as outlined in the discharge instructions. Patient and/or caregivers are agreeable to this plan of care and follow-up instructions have been explained in detail. The patient and/or caregivers have received these instructions in written format and expressed un derstanding of these discharge instructions. The patient and her caregivers are aware that if any significant change in condition or worsening of symptoms should prompt him to immediately return to this of the closest emergency department. If an emergent department is not readily available I would encourage him to call 911. Jadon Disclaimer Jadon Disclaimer This electronic medical record was generated, in whole or in part, using a voice recognition dictation system. Departure Departure Impression: Primary Impression: Rash due to allergy Disposition: HOME, SELF-CARE (at 0 924) Condition: STABLE Referrals: EMMA CHRISTIAN MD (PCP) Patient Instructions: Drug Allergy, Rash Additional Instructions: Drink plenty of liquids Follow-up with your primary care physician in 3-5 days Return to ER if not getting better Scripts Betamethasone Dipropionate (BETAMETHASONE DIPROPIONATE) 15 Gm Cream..g. 1 JEFFERY TP BID, #45 GM 0 Refills Prov: DOROTEO ROJAS MD 06/17/18 Methylprednisolone (MEDROL) 4 Mg Tab.ds.pk 1 PKG PO UD for inflammation, #1 PKG Prov: DOROTEO ROJAS MD 06/17/18 Hydroxyzine Hcl (HYDROXYZINE HCL) 25 Mg Tablet 1 TAB PO TID PRN for itching, #30 TAB Prov: DOROTEO ROJAS MD 06/17/18 DOROTEO ROJAS MD June 17, 2018 09:34
[2018-06-17] MEDS ORDERED: DEXAMETHASONE SOD PHOS 4 MG/ML VIAL IM ONE (09:45)
== END 2018-06-17 09:54 | disposition home or self-care (01) ==
LOC: ER 08:40
DX: T78.40XA Allergy, unspecified, initial encounter (principal); I10 Essential (primary) hypertension; F31.9 Bipolar disorder, unspecified; G43.909 Migraine, unspecified, not intractable, without status migrainosus; F17.200 Nicotine dependence, unspecified, uncomplicated; Z88.0 Allergy status to penicillin; Z88.5 Allergy status to narcotic agent; Z88.6 Allergy status to analgesic agent; Z88.8 Allergy status to other drugs, medicaments and biological substances
CPT/HCPCS: 96372; 99283; J1100

== ENCOUNTER 2018-06-17 20:37 | Emergency (ER) | payer OTHER ==
[~2018-06-17] VITALS: Ht 167.6 cm; Wt 63.5 kg
[~2018-06-17 20:37] MED LIST changes: +BETA15CR5 TP; +HYDR25TA PO
[2018-06-17 20:40] VITALS: BP 118/73
[2018-06-17] MEDS ORDERED: HYDR25TA PO (20:49)
[2018-06-17] MEDS ORDERED: METH4TAB2 PO (20:49)
[2018-06-17] MEDS ORDERED: BETA15CR5 TP (20:49)
--- NOTE | 2018-06-17 20:49 | PHYS DOC ---
Past Medical History Past Medical History: Bipolar, Hypertension, Migraines, Other Additional Past Medical Histor: TREMORS, PTSD Past Surgical History: Hysterectomy, Knee Replacement, Other Additional Past Surgical Histo: Lumps removed from L breast, ENDOMETRIOSIS SURGERY Alcohol Use: Rarely Drug Use: None Adult General Chief Complaint Chief Complaint: SKIN PROBLEM HPI HPI Patient is a 48 year old female who presents to the ED today to be given prescriptions for beclomethasone, Medrol Dosepak and hydroxyzine. Patient was seen earlier today, was given this medications for a rash, she took the prescription to [facility] pharmacy, when she went to pick it up it was closed, she tried going to a different [facility] to see if they can transfer the prescription over but they stated they're not able to do it because the prescription has been field. Patient was given the above prescriptions and discharged to home. Review of Systems Review of Systems Constitutional: Denies fever or chills [] Musculoskeletal: Denies back pain or joint pain [] Integument: Reports rash Neurologic: Denies headache, focal weakness or sensory changes [] All other systems were reviewed and found to be within normal limits, except as documented in this note. Allergies Allergies Allergies Coded Allergies Type Severity Reaction Last Updated Verified Penicillins Allergy Severe Anaphylaxis 02/02/15 Yes diphenhydramine Allergy Intermediate Nausea and Vomiting, GI Bleeding 02/29/16 Yes ketorolac Allergy Intermediate Nausea and Vomiting 02/29/16 Yes prochlorperazine Allergy Intermediate Nausea and Vomiting 02/29/16 Yes NSAIDS (Non-Steroidal Anti-Inflamma Adverse Reaction Intermediate Nausea and Vomiting, GI Bleeding 02/29/16 Yes Physical Exam Physical Exam Constitutional: Well developed, well nourished, no acute distress, non-toxic appearance. [] Skin: Warm, dry, erythematous rash noted to bilateral upper extremities. Back: No tenderness, no CVA tenderness. [] Extremities: No tenderness, no cyanosis, no clubbing, ROM intact, no edema. [] Neurologic: Alert and oriented X 3, normal motor function, normal sensory function, no focal deficits noted. [] Psychologic: Affect normal, judgement normal, mood normal. [] EKG EKG [] Radiology/Procedures Radiology/Procedures [] Course & Med Decision Making Course & Med Decision Making Pertinent Labs and Imaging studies reviewed. (See chart for details) See history of present illness Dragon Disclaimer Dragon Disclaimer This electronic medical record was generated, in whole or in part, using a voice recognition dictation system. Departure Departure Impression: Primary Impression: Rash Disposition: 01 HOME, SELF-CARE Condition: STABLE Referrals: EMMA CHRISTIAN MD (PCP) follow up with your doctor next week Patient Instructions: Rash, [id number] Additional Instructions: Use the medications as ordered. Follow up with your doctor next week Scripts Betamethasone Dipropionate (BETAMETHASONE DIPROPIONATE) 15 Gm Cream..g. 1 JEFFERY TP BID, #45 GM 1 Refill Prov: DONIS BARBER APRN 06/17/18 Hydroxyzine Hcl (HYDROXYZINE HCL) 25 Mg Tablet 1 TAB PO TID, #30 TAB Prov: DONIS BARBER APRN 06/17/18 Methylprednisolone (MEDROL) 4 Mg Tab.ds.pk 1 PKG PO UD, #1 PKG Prov: DONIS BARBER APRN 06/17/18 DONIS BARBER APRN June 17, 2018 20:49
== END 2018-06-17 21:00 | disposition home or self-care (01) ==
LOC: ER 20:37
DX: R21 Rash and other nonspecific skin eruption (principal); I10 Essential (primary) hypertension; G43.909 Migraine, unspecified, not intractable, without status migrainosus; F31.9 Bipolar disorder, unspecified; Z88.0 Allergy status to penicillin; Z88.5 Allergy status to narcotic agent; Z88.6 Allergy status to analgesic agent; Z88.8 Allergy status to other drugs, medicaments and biological substances
CPT/HCPCS: 99283

== ENCOUNTER → 2018-09-18 | Day surgery (SDC) | payer OTHER ==
[~2018-09-18] MED LIST changes: +BUSP30TA PO; +ONDANSETRON PF 4 MG/2 ML VIAL. IV ONE; +ONDANSETRON PF 4 MG/2 ML VIAL. ONE; +PROPOFOL 20 ML IV ONE; +PROPOFOL 40 ML IV ONE; +QUET100T4 PO
[2018-09-18] MEDS: IV RINGERS,LACTATED 1000ML 1,000 ML IV SCH ×2 (12:29→12:30)
[2018-09-18] MEDS: fentaNYL PF VIAL 100 MCG/2 ML VIAL IV PRN ×3 (13:47→14:04)
--- NOTE | 2018-09-18 14:04 | PDOC4 ---
PROCEDURE Procedure Colon with biopsies/EGD with biopies. IND: CRC screening/FH CRC/Dyspepsia/diarrhea. Meds: per anesthesia Findings: E-Grade A at GEJ G--prepyloric erythema, biopsied D--Normal to second, biopsies second HOOD normal --Scope advanced to TI. Mucosa normal. Random biopsies cecum/ascending and rectum. Small IH's . Jackeline. well. IMP: Mild GERD Non-specific antral erythema Hemorrhoids. --Biopsies pending. REC: Start PPI. Await biopsies. Imodium prn. F/u in 2 weeks. Colon 5 years due to FH CRC. EWELINA CELESTIN MD Sep 18, 2018 14:03
[2018-09-18 14:20] VITALS: BP 116/60
--- NOTE | 2018-09-19 16:06 | PATHOLOGY ---
[facility] Accession Number: [id number] . 01 Material submitted: . PART A: small bowel - SMALL BOWEL PART B: stomach - ANTRUM PART C: gastrointestinal site - CECUM AND ASCENDING COLON. Modifiers: ascending PART D: rectum - RECTAL BIOPSY . 01 Clinical history: . Diarrhea . 02 Diagnosis: A. Small bowel biopsies: - No significant pathologic abnormalities. . B. Gastric biopsy, antrum: - Congestion and slight chronic inflammation. . C. Colon biopsies, cecum and ascending colon: - No significant pathologic abnormalities. . D. Colorectal biopsies, rectum: - No significant pathologic abnormalities. . (JPM:mml; 09/19/2018) [facility]/09/19/2018 . 02 Comment: Sections of the small bowel biopsy reveal segments of small intestine mucosa. Where best oriented, mucosal villi show no sprue-like changes or significant inflammatory changes. . Sections of the gastric antral biopsy show congestion and slight chronic inflammation. A properly-controlled immunoperoxidase stain for Helicobacter is negative for Helicobacter organisms. . Sections of the cecum and ascending colon biopsies reveal segments of colonic mucosa containing two mucosal-associated lymphoid aggregates. There is no evidence of a chronic destructive colitis, lymphocytic colitis, or collagenous colitis. . Sections of the rectal biopsy reveal segments of rectal mucosa. There is no evidence of a chronic destructive colitis, lymphocytic colitis, or collagenous colitis. . Special stain: Immunoperoxidase stain for Helicobacter on B1 . (JPM:mml; 09/19/2018) . 02 Electronically signed: . Eliezer Fay MD, Pathologist NPI- [id number] . 01 Gross description: . A. Received in formalin labeled "Pinky Villalpando, small bowel BX, rule out sprue," are 2 segments of lorenzo soft tissue measuring 0.9 x 0.3 x 0.3 cm in aggregate dimensions and ranging from 0.4 to 0.5 cm in maximum dimension. The specimen is submitted entirely in cassette A1. . B. Received in formalin labeled "Pinky Villalpando, antrum BX," are 2 segments of lorenzo soft tissue measuring 0.8 x 0.2 x 0.3 cm in aggregate dimensions and ranging from 0.3 to 0.5 cm in maximum dimension. The specimen is submitted entirely in cassette B1. . C. Received in formalin labeled "Kwasi, Pinky, cecum and ascending colon BX," are 6 segments of lorenzo soft tissue measuring 1.5 x 0.7 x 0.3 cm in aggregate dimensions and ranging from 0.3 to 0.4 cm in maximum dimension. The specimen is submitted entirely in cassette C1. . D. Received in formalin labeled "Pinky Villalpando, rectal BX for diarrhea," are 5 segments of lorenzo soft tissue measuring 1.0 x 0.9 x 0.3 cm in aggregate dimensions and ranging from 0.2 to 0.5 cm in maximum dimension. The specimen is submitted entirely in cassette D1. (TSD; 09/18/2018) TOB/TOB . 02 Pathologist provided ICD-10: R19.7 . 02 CPT . 925964, 339183, 948093, 243613, R24153 Specimen Comment: A courtesy copy of this report has been sent to Specimen Comment: [phone], . Specimen Comment: Report sent to / DR CHRISTIAN Performed at: 01 [facility] [address], [place] [id number] MD Jaime Quach MD Phone: [phone] [facility]formed at: [facility] [address] [place], [place] [id number] MD Eliezer Fay MD Phone: [phone]
== END ==
LOC: ENDOS 11:51
PROVIDERS: ATTEND Internal Medicine Gastroenterology
DX: K29.50 Unspecified chronic gastritis without bleeding (principal); K21.0 Gastro-esophageal reflux disease with esophagitis; K63.89 Other specified diseases of intestine; K64.0 First degree hemorrhoids; Z80.0 Family history of malignant neoplasm of digestive organs; Z86.010 Personal history of colon polyps; Z88.5 Allergy status to narcotic agent; Z88.0 Allergy status to penicillin; Z88.8 Allergy status to other drugs, medicaments and biological substances; Z90.710 Acquired absence of both cervix and uterus
CPT/HCPCS: 43239; 45380; J2405; J2704; J3010

== ENCOUNTER 2018-10-28 16:06 | Emergency (ER) | payer OTHER ==
[~2018-10-28] VITALS: Ht 160 cm; Wt 64.9 kg
[~2018-10-28 16:06] MED LIST changes: -ONDANSETRON PF 4 MG/2 ML VIAL. IV ONE; -ONDANSETRON PF 4 MG/2 ML VIAL. ONE; -PROPOFOL 20 ML IV ONE; -PROPOFOL 40 ML IV ONE
[2018-10-28 16:22] VITALS: BP 126/84
--- NOTE | 2018-10-28 17:10 | RAD ---
EXAM: 3 views right foot DATE: 10/28/2018 4:35 PM INDICATION: hit wall pain great toe / COMPARISON: No Prior FINDINGS/ IMPRESSION: No evidence of acute fracture or dislocation. Small talonavicular osteophytes are seen. Decreased bone mineral density. Electronically signed by: Shahid Carlisle MD (10/28/2018 5:07 PM) [facility] – [place]
--- NOTE | 2018-10-28 17:17 | PHYS DOC ---
Past Medical History Past Medical History: No Pertinent History Additional Past Medical Histor: TREMORS, PTSD Past Surgical History: No Surgical History Additional Past Surgical Histo: Lumps removed from L breast, ENDOMETRIOSIS SURGERY Alcohol Use: None Drug Use: None Adult General Chief Complaint Chief Complaint: TOE PROBLEM HPI HPI Patient is a 48 year old female who presents to the ED today complaining of 9 o ut of 10 right great toe pain that began 9 days ago after she stabbed her right great toe on a wall. Patient states the pain is sharp and constant worse on weight-bearing and things to the toe. She states she has tried [id number] remedies with no relief. Review of Systems Review of Systems Constitutional: Denies fever or chills [] Musculoskeletal: Reports right great toe pain Integument: Denies rash or skin lesions [] Neurologic: Denies headache, focal weakness or sensory changes [] All other systems were reviewed and found to be within normal limits, except as documented in this note. Allergies Allergies Allergies Coded Allergies Type Severity Reaction Last Updated Verified Penicillins Allergy Severe Anaphylaxis 09/18/18 Yes codeine Allergy Intermediate Nausea and Vomiting 09/18/18 Yes diphenhydramine Allergy Intermediate Nausea and Vomiting, GI Bleeding 09/18/18 Yes ketorolac Allergy Intermediate Nausea and Vomiting 09/18/18 Yes prochlorperazine Allergy Intermediate Nausea and Vomiting 09/18/18 Yes NSAIDS (Non-Steroidal Anti-Inflamma Adverse Reaction Intermediate Nausea and Vomiting, GI Bleeding 09/18/18 Yes Physical Exam Physical Exam Constitutional: Well developed, well nourished, no acute distress, non-toxic appearance. [] Skin: Warm, dry, no erythema, no rash. [] Back: No tenderness, no CVA tenderness. [] Extremities: Right great toe with no obvious deformity. Onychomycosis noted of the nailbed. Tenderness on touching the right great toe tip. Full range of motion to the right foot and toes. +2 right pedal pulse. Cap refill less than 2 seconds to the right toes. Sensation intact to the right lower extremity. Neurologic: Alert and oriented X 3, normal motor function, normal sensory function, no focal deficits noted. [] Psychologic: Affect normal, judgement normal, mood normal. [] Current Patient Data Vital Signs Vital Signs Date Time Temp Pulse Resp B/P (MAP) Pulse Ox O2 Delivery O2 Flow Rate FiO2 10/28/18 16:22 98.2 70 14 126/84 (98) 99 Room Air 98.2 EKG EKG [] Radiology/Procedures Radiology/Procedures []PROCEDURE: FOOT LEFT 3V EXAM: 3 views right foot DATE: 10/28/2018 4:35 PM INDICATION: hit wall pain great toe / COMPARISON: No Prior FINDINGS/ IMPRESSION: No evidence of acute fracture or dislocation. Small talonavicular osteophytes are seen. Decreased bone mineral density. Electronically signed by: Shahid Carlisle MD (10/28/2018 5:07 PM) [facility] [place] DICTATED and SIGNED BY: SHAHID CARLISLE MD DATE: 10/28/18 0871 Course & Med Decision Making Course & Med Decision Making Pertinent Labs and Imaging studies reviewed. (See chart for details) This is a 48-year-old female patient presenting to the ED today with right great toe pain that began 9 days ago after she stubbed her toe on a wall. Right foot x-rays interpreted by radiologist are negative for any acute findings. Ice elevation encouraged. Discharged with gabapentin. Follow-up with orthopedic doctor in one week. Dragon Disclaimer Dragon Disclaimer This electronic medical record was generated, in whole or in part, using a voice recognition dictation system. Departure Departure Impression: Primary Impression: Contusion of right great toe without damage to nail Additional Impression: Onychomycosis of great toe Disposition: 01 HOME, SELF-CARE Condition: STABLE Referrals: EMMA CHRISTIAN MD (PCP) CHILANGO MULLEN MD follow up on one week Patient Instructions: Contusion, [id number] Additional Instructions: You were evaluated in the emergency room for right great toe contusion. Try to ice and take the extremity. Take the prescribed medications as ordered. Follow up with your doctor or the provided orthopedic doctor in one week Scripts Gabapentin (GABAPENTIN) 600 Mg Tablet 600 MG PO TID for NEUROGENIC PAIN, #20 TAB Prov: DONIS BARBER APRN 10/28/18 Problem Qualifiers Primary Impression: Contusion of right great toe without damage to nail Encounter type: initial encounter Qualified Codes: S90.111A - Contusion of right great toe without damage to nail, initial encounter DONIS BARBER APRN Oct 28, 2018 17:17
[2018-10-28] MEDS ORDERED: GABA600T7 PO (17:21)
== END 2018-10-28 17:32 | disposition home or self-care (01) ==
LOC: ER 16:06
DX: S90.111A Contusion of right great toe without damage to nail, initial encounter (principal); B35.1 Tinea unguium; Z88.0 Allergy status to penicillin; Z88.5 Allergy status to narcotic agent; Z88.6 Allergy status to analgesic agent; Z88.8 Allergy status to other drugs, medicaments and biological substances; W22.01XA Walked into wall, initial encounter; Y93.89 Activity, other specified; Y92.89 Other specified places as the place of occurrence of the external cause; Y99.8 Other external cause status
CPT/HCPCS: 73630; 99284